=== PATIENT | male | born 1930 | race Caucasian/White ===

== ENCOUNTER → 2016-11-12 | Outpatient (CLI) | payer MEDICARE, BC ==
[2016-11-12 15:44] LABS: Blood Urea Nitrogen 19 mg/dL (9-20); Non-African American GFR(MDRD) >60 (>60 ml/min/1.73 sqM)
== END | disposition home or self-care (01) ==
LOC: LABWHC1 14:36
PROVIDERS: ATTEND Physical Medicine & Rehabilitation
DX: Z01.812 Encounter for preprocedural laboratory examination (principal); M48.06 Spinal stenosis, lumbar region; M51.17 Intervertebral disc disorders with radiculopathy, lumbosacral region; M47.817 Spondylosis without myelopathy or radiculopathy, lumbosacral region; I70.0 Atherosclerosis of aorta; I70.293 Other atherosclerosis of native arteries of extremities, bilateral legs; G45.9 Transient cerebral ischemic attack, unspecified
CPT/HCPCS: 36415; 82565; 84520